=== PATIENT | male | born 1930 | race African-American/Black ===

== ENCOUNTER → 2016-08-25 | Outpatient (CLI) | payer MEDICARE, OTHER ==
[~2016-08-25] VITALS: Ht 165.1 cm; Wt 62.8 kg
[~2016-08-25] MED LIST: COMBISP IH; FLUT1BLS PO; TIOT4MIS2
[2016-08-25 12:41] VITALS: BP 119/64
== END | disposition home or self-care (01) ==
LOC: SRCNTR 11:50
PROVIDERS: ATTEND Internal Medicine Critical Care Medicine
DX: J44.9 Chronic obstructive pulmonary disease, unspecified (principal); K21.9 Gastro-esophageal reflux disease without esophagitis; Z85.51 Personal history of malignant neoplasm of bladder
CPT/HCPCS: G0463

== ENCOUNTER → 2016-11-03 | Outpatient (CLI) | payer MEDICARE, OTHER ==
[~2016-11-03] VITALS: Ht 165.1 cm; Wt 63.0 kg
[2016-11-03 11:35] VITALS: BP 109/70
== END | disposition home or self-care (01) ==
LOC: SRCNTR 11:34
PROVIDERS: ATTEND Internal Medicine Critical Care Medicine
DX: K21.9 Gastro-esophageal reflux disease without esophagitis (principal); J44.1 Chronic obstructive pulmonary disease with (acute) exacerbation; C67.9 Malignant neoplasm of bladder, unspecified; Z98.890 Other specified postprocedural states
CPT/HCPCS: G0463

== ENCOUNTER → 2016-12-11 | Outpatient (CLI) | payer MEDICARE, OTHER | END | disposition home or self-care (01) | LOC: RADPV 11:38 | PROVIDERS: ATTEND Internal Medicine Critical Care Medicine | DX: J98.11 Atelectasis (principal); J64 Unspecified pneumoconiosis | CPT/HCPCS: 71020 ==

== ENCOUNTER → 2017-01-12 | Outpatient (CLI) | payer MEDICARE, OTHER ==
[~2017-01-12] VITALS: Ht 165.1 cm; Wt 61.0 kg
[2017-01-12 11:40] VITALS: BP 116/70
== END | disposition home or self-care (01) ==
LOC: SRCNTR 11:36
PROVIDERS: ATTEND Internal Medicine Critical Care Medicine
DX: K21.9 Gastro-esophageal reflux disease without esophagitis (principal); J44.1 Chronic obstructive pulmonary disease with (acute) exacerbation; Z85.51 Personal history of malignant neoplasm of bladder
CPT/HCPCS: G0463

== ENCOUNTER → 2017-02-11 | Outpatient (CLI) | payer MEDICARE, OTHER | END | disposition home or self-care (01) | LOC: RADMN 13:12 | PROVIDERS: ATTEND Internal Medicine Critical Care Medicine | DX: J43.8 Other emphysema (principal); J98.4 Other disorders of lung; J47.9 Bronchiectasis, uncomplicated; R91.1 Solitary pulmonary nodule; I70.0 Atherosclerosis of aorta; I25.10 Atherosclerotic heart disease of native coronary artery without angina pectoris | CPT/HCPCS: 71250 ==